=== PATIENT | female | born 1950 | race Caucasian/White ===

== ENCOUNTER 2020-07-11 12:42 | Emergency (ER) | payer BC, MEDICARE ==
[~2020-07-11] VITALS: Ht 152.4 cm; Wt 64.6 kg
[~2020-07-11 12:42] MED LIST: ASPI-496 PO; ATEN50TA41 PO; OMEP20TA62 PO; RANI-244 PO; TRIA1TAB3 PO
--- NOTE | 2020-07-11 13:12 | NUR ---
PT C/O CHEST PRESSURE NOW WITH SHARP CP EARLIER THAT RADIATED TO BACK. PT ALOS REPORTS "FUNNY FEELING " AROUND HERMOUTH. DENIES N/V BUT FELT LIGHTHEADED. PT HAS SIMILAR EPISODE A FEW YEARS AG AND WS WORKED UP BY MANAGER BODY AND TOLD IT WAS ANGINA. PT TOOK BABY ASPIRIN ERLIER TODAY. PT 'S MOTHER OF [place] AND FATHER OF AAA.
--- NOTE | 2020-07-11 13:14 | NUR ---
PT ON MONITOR AND GIVEN CALL LIGHT. CP STARTED WHEN PT WAS DOING MAKE-UP TODAY.
[2020-07-11] MEDS ORDERED: CHOL10003 PO (13:18)
[2020-07-11] MEDS ORDERED: DICL100G19 TP (13:18)
[2020-07-11] MEDS ORDERED: ZOLP10TA PO (13:18)
[2020-07-11] MEDS ORDERED: NAPR220C2 PO (13:18)
[2020-07-11] MEDS ORDERED: ASPIRIN 81 MG TABLET CHEW ONE (14:10)
[2020-07-11] MEDS ORDERED: ONDANSETRON 2MG/ML, 2ML ONE (14:10)
[2020-07-11] MEDS ORDERED: MORPHINE SULFATE 4 MG/ML, 1ML ONE (14:11)
[2020-07-11 14:15] LABS: BASOPHILS # (AUTO) 0.03 x10^3/uL (0-0.1); BASOPHILS % (AUTO) 0 % (0-1); EOSINOPHILS # (AUTO) 0.11 x10^3/uL (0-0.4); EOSINOPHILS % (AUTO) 1 % (1-7); LYMPHOCYTES # (AUTO) 3.03 x10^3/uL (1-3.4); LYMPHOCYTES % (AUTO) 39 % (22-44); MD NO; MEAN CORPUSCULAR HEMOGLOBIN 31.3 pg (27.0-34.8); MEAN CORPUSCULAR HGB CONC 32.6 g/dL (32.4-35.8); MEAN CORPUSCULAR VOLUME 95.9 fL (80-100); MEAN PLATELET VOLUME 7.4 fL (7.4-10.4); MONOCYTES # (AUTO) 0.53 x10^3/uL (0.2-0.8); MONOCYTES % (AUTO) 7 % (2-9); NEUTROPHILS # (AUTO) 4.13 x10^3/uL (1.8-6.8); NEUTROPHILS % (AUTO) 53 % (42-75); PLATELET COUNT 280 x10^3/uL (130-400); RED BLOOD COUNT 4.65 x10^6/uL (3.82-5.3); RED CELL DISTRIBUTION WIDTH 15.1 % (9.6-15.2)
[2020-07-11 14:22] LABS: ALANINE AMINOTRANSFERASE 31 U/L (12-78); ALBUMIN 3.8 g/dL (3.4-5.0); ANION GAP 5 mmol/L (5-15); CALCIUM 8.9 mg/dL (8.5-10.1); CHLORIDE 108 mmol/L (98-107); CREATININE 1.09 mg/dL (0.55-1.02)
[2020-07-11 14:26] LABS: ALKALINE PHOSPHATASE 59 U/L (45-117); BILIRUBIN,TOTAL 0.6 mg/dL (0.2-1.0); TOTAL PROTEIN 7.1 g/dL (6.4-8.2); TROPONIN I < 0.015 ng/mL (0.000-0.045)
--- NOTE | 2020-07-11 14:31 | NUR ---
CHART UP FOR MD RECHECK. PT AWARE.
[2020-07-11] MEDS ORDERED: MORPHINE SULFATE 4 MG/ML, 1ML IVPush PRN (15:00)
[2020-07-11] MEDS ORDERED: ONDANSETRON 2MG/ML, 2ML IVPush ONE (15:00)
[2020-07-11] MEDS ORDERED: ASPIRIN 81 MG TABLET CHEW PO ONE (15:00)
[2020-07-11] MEDS ORDERED: SODIUM CHLORIDE FLUSH 10ML SYR IVF ONE (15:00)
[2020-07-11 15:40] VITALS: BP 140/85
== END 2020-07-11 15:43 | disposition home or self-care (01) ==
LOC: ED 13:58
DX: R07.89 Other chest pain (principal); R42 Dizziness and giddiness; I10 Essential (primary) hypertension; R00.1 Bradycardia, unspecified; I44.0 Atrioventricular block, first degree
CPT/HCPCS: 36415; 71045; 80053; 84484; 85025; 93005; 99285

== ENCOUNTER → 2020-09-30 | Outpatient (CLI) | payer MEDICARE ==
[~2020-09-30] MED LIST changes: +CHOL10003 PO; +DICL100G19 TP; +NAPR220C2 PO; +ZOLP10TA PO
== END | disposition home or self-care (01) ==
LOC: CFH 12:24
PROVIDERS: ATTEND Internal Medicine Cardiovascular Disease
DX: Z13.6 Encounter for screening for cardiovascular disorders (principal); I36.1 Nonrheumatic tricuspid (valve) insufficiency; R07.89 Other chest pain; I10 Essential (primary) hypertension; I72.8 Aneurysm of other specified arteries
CPT/HCPCS: 75571; 78452; 93017; 93306; A9502